=== PATIENT | male | born 2000 | race Hispanic/Latino ===

== ENCOUNTER 2019-02-14 14:22 | Emergency (ER) | payer OTHER ==
[~2019-02-14] VITALS: Ht 188 cm; Wt 86.2 kg
--- NOTE | 2019-02-14 16:34 | Diagnostic Imaging Report ---
Right Shoulder - 3 Views HISTORY: Pain, trauma COMPARISON: None FINDINGS: No acute fracture or dislocation. The soft tissues appear unremarkable. Alignment is anatomic. The visualized portions of the right lung are clear. IMPRESSION: No acute osseous injury. Signed by: Jaguar Fernandez MD on 02/14/2019 4:31 PM
[2019-02-14 16:48] VITALS: BP 137/98
--- NOTE | 2019-02-14 17:31 | Diagnostic Imaging Report ---
RIGHT HUMERUS X-RAY - 2 VIEWS HISTORY: ^[id number] ^[id number] COMPARISON: None available. FINDINGS: Bones: No acute displaced fracture. Osseous alignment is within normal limits. Joints: The joint spaces are well-maintained. Soft tissues: The soft tissues appear unremarkable. IMPRESSION: No acute radiographic abnormality. Signed by: Dr. Jaja Solorzano M.D. on 02/14/2019 5:28 PM
== END 2019-02-14 17:50 | disposition home or self-care (01) ==
LOC: FSED 14:22
DX: S46.811A Strain of other muscles, fascia and tendons at shoulder and upper arm level, right arm, initial encounter (principal); J42 Unspecified chronic bronchitis; W17.89XA Other fall from one level to another, initial encounter; Y93.16 Activity, rowing, canoeing, kayaking, rafting and tubing; Y92.828 Other wilderness area as the place of occurrence of the external cause
CPT/HCPCS: 99283